=== PATIENT | female | born 1940 | race Caucasian/White ===

== ENCOUNTER 2016-07-31 08:56 | Inpatient (IN) | payer MEDICARE ==
[~2016-07-31] VITALS: Ht 160 cm; Wt 97.5 kg
[2016-07-31] MEDS ORDERED: ZOLP10TA3 PO (14:21)
[2016-07-31] MEDS ORDERED: FLUO40CA PO (14:21)
[2016-07-31] MEDS ORDERED: LOSA50TA PO (14:21)
[2016-07-31] MEDS ORDERED: GLIM4TAB PO (14:21)
[2016-07-31] MEDS ORDERED: AMLO5TAB2 PO (14:21)
[2016-07-31] MEDS ORDERED: LEVO150T7 PO (14:21)
[2016-07-31] MEDS ORDERED: PANT40TA3 PO (14:21)
--- NOTE | 2016-09-06 12:46 | MH ---
cc: DOMO MEJIA M.D. DATE OF ADMISSION 09/19/2016 ADMITTING DIAGNOSIS Osteoarthritis of the right knee, varus deformity right knee, patellofemoral disorder right knee, medial meniscus tear right knee and pain of the right knee. HISTORY The patient is a 76-year-old white female who has had a rather lengthy history of pain involving her right knee. Her history extends back to approximately 1988 at which time the patient underwent arthroscopic surgery as completed in the [facility] where the patient was living at that time. She described limited improvement following the procedure until approximately 1990 when she developed a staph infection secondary to a laceration about her right knee that required repeat surgery and approximately six months of intravenous antibiotics thereafter. Over the following year, she underwent at least two additional arthroscopic procedures the most recent of which was completed in 2001. During this interval of time, the patient received multiple cortisone injections for ongoing pain about her right knee and had been conforming to conservative management but with the passage of time became increasingly more symptomatic with pain especially within the past two years that she related to dancing activities. She had fallen on several occasions being aware of recurrent swelling about her knee for which she had taken Aleve, Naproxen and hydrocodone for pain management. She described herself as having been quite active in the past which included participation in karate and softball activities. She presented to the undersigned physician in July of 2000 of this year and at that time a review of an MRI scan that had been completed in June reported tricompartmental osteoarthritis being most severe in the medial compartment with an extruded tear involving the body of the medial meniscus and adjacent bony edema. Her x-ray studies revealed obvious degenerative change with [id number] apposition about the medial compartment associated with a varus deformity of at least 8 degrees magnitude and secondary involvement of the patellofemoral articulation. Findings and treatment options were reviewed with the patient at that time. The pros and cons of continuing with conservative management versus operative intervention involving total knee arthroplasty were outlined in detail. Emphasis was made regarding the fact that the decision to proceed with surgery would be left entirely to the patient's discretion. The patient considered her options in this regard and felt that her symptoms had progressed to a point in time where she was ready to proceed with surgery and in compliance with her wishes, she is currently being admitted in order that the above be accomplished. PAST MEDICAL HISTORY Hospitalizations and surgeries in addition to the procedures of her right knee described include: 1. Medical management for a pulmonary embolus following surgical treatment of her staph infection as described above. 2. She has also undergone surgery of her left hand and wrist area for a history of trauma that did apparently involved some type of open reduction, internal fixation and subsequent removal of hardware. 3. She has had a laparoscopic cholecystectomy. 4. A lap banding procedure 5. Insertion of a meridian vena caval filter 6. Colonoscopy 7. Upper endoscopy 8. Esophageal dilation 9. Umbilical herniorrhaphy 10. Lumpectomy of the left breast followed by radiation therapy 11. Excision of a benign cyst of the neck area 12. Right carpal tunnel release 13. Partial hysterectomy 14. Tonsillectomy 15. Removal of a duck-type of the right side of her neck 16. Additional hospitalizations for possible stroke. 17. Additional hospitalization for shortness of breath. The patient's current medical illnesses include: 1. Hypertension 2. Heart disease 3. Depression 4. Diabetes 5. Fibromyalgia 6. Hypothyroidism MEDICATIONS Her current medications: 1. Amlodipine 5 mg daily 1. Vasotec 10 mg daily 2. Fluoxetine 40 mg daily 3. Glimepiride 4 mg daily 4. Ambien 10 mg at bedtime 5. Levofloxacin 200 mcg daily 6. Lyrica 300 mg twice daily 7. Supplements including a women's multivitamin, vitamin D3, B12, vitamin C, Co-Q10, adult probiotic, calcium and Nexium ALLERGIES The patient describes a number of drug allergies includin. ATENOLOL THAT HAS CAUSED TIGHT OF HER THROAT 2. CARDIZEM, ASTHMATIC TYPE PROBLEMS 3. E-MYCIN 4. MACRODANTIN 5. SULFA DRUGS AND TETRACYCLINE HAVE BEEN ASSOCIATED WITH A HIVES TYPE REACTION. 6. HUMIBID HAS CAUSED RASH 7. MINIPRESS, TACHYCARDIA 8. STATIN DRUGS HAVE BEEN ASSOCIATED WITH WEIGHT GAIN 9. TOLECTIN HAS CAUSED INCREASED BLOOD PRESSURE 10. SHE SUGGESTED THE POSSIBILITY OF A REACTION TO CODEINE WITH SOME IRRATIONAL THOUGHT PROCESS, BUT HAS APPARENTLY TAKEN A NUMBER OF CODEINE TYPE MEDICINES IN THE PAST AND MORE RECENTLY WITHOUT SIGNIFICANT SIDE EFFECT NOTED. REVIEW OF SYSTEMS She has a history of headaches, no seizure or syncope. No sinus congestion or epistaxis. Diminished auditory acuity for which hearing aids are utilized. No tinnitus. No bleeding gums. She does have a history of dysphagia for which she has had esophageal dilations and describes she has been diagnosed as having borderline Lopez's esophagitis. No cough, shortness of breath, or upper respiratory infection. She has a history of sleep apnea for which C-PAP has been utilized in the past, but following her lap banding was discontinued. No angina. She is medically managed for hypertension. Her appetite is good. Bowel movements are regular. No hepatitis, ulcers or hemorrhoids. She is status post cholecystectomy. No urinary tract infection. No kidney stones. History of multiple fractures of the hand and foot region bilaterally. A psychiatric history of depression. Her remaining review of systems is unremarkable and noncontributory. FAMILY HISTORY The patient has had a partner for 32 years, but became . Within the last two years. Her partner is [id number], status post right total knee arthroplasty. She has a 48-year-old daughter by previous marriage who she is estranged from, but apparently has a history of ethanol abuse. Family history is otherwise positive for diabetes, hypertension, obesity and uterine cancer. 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 She admits to a 50 pack year use of tobacco which at its peak had been slightly less than one-pack per day and more recently is limited to no more than one cigar per month. She admits to ethanol consumption on social basis. PHYSICAL EXAMINATION Height 5 feet 4 inches, weight 204 pounds. GENERAL: An alert, oriented responsive 76-year-old white female who sits quietly upon the examination table with no obvious distress. HEAD, EYES, EARS, NOSE, AND THROAT: Pupils are equally round and reactive to light. Extraocular movements full. Sclerae clear. External nares clear. External auditory canals clear. Dental intact. Mucous membranes pink and moist. Pharynx clear. NECK: Supple. Active range of motion without appreciable pain. Carotid pulse bilaterally. Trachea midline. Thyroid without enlargement. LUNGS: Clear to auscultation and percussion. No CVA tenderness. No discomfort throughout the dorsal lumbar spine. HEART: Regular rhythm. No murmur or gallop. ABDOMEN: Soft and nontender. Bowel sounds present. PELVIC: Per her primary care physician. EXTREMITIES: Right knee, there is a mild fullness about the knee consistent with redundancy of soft tissue. No distinct intra-articular effusion. Limited mobility in the 90+ degree range of flexion with crepitation elicited, subtle suggestion for trace collateral ligamentous instability. Yani test and drawer sign negative. Pivot shift and Nel sign positive for medial compartment pain. Straight-leg raising unremarkable at 80 degrees, satisfactory mobility of the right hip with no associated pain. Mild antalgic gait. NEUROLOGIC: Cranial nerves II-XII grossly intact excluding diminished auditory acuity. IMPRESSION Osteoarthritis right knee, varus deformity right knee patellofemoral disorder right knee, medial meniscus tear right knee, pain right knee PLAN Right total knee arthroplasty. The nature of the planned surgical procedure, the potential complications and risks associated, the expectations of surgery and the consent form were thoroughly reviewed with the patient in the presence of her partner prior to admission to the hospital. Chinyere has indicated her full understanding regarding all of the above and given consent to proceed with treatment as outlined. Medical evaluation and clearance for surgery will be completed by her primary care physician Dr. Jose Luis Schmidt. MD OSMIN Cuellar/GABRIELLE /12:03 PM /12:22 PM
--- NOTE | 2016-10-13 12:28 | MH ---
cc: DOMO MEJIA MD, GREGORY P. MD DATE OF ADMISSION: 11/07/2016 ADMITTING DIAGNOSIS: 1. Osteoarthritis of the right knee. 2. Varus deformity right knee. 3. Patellofemoral disorder right knee. 4. Medial meniscus tear right knee. 5. Pain of the right knee HISTORY OF PRESENT ILLNESS: A 76-year-old white female with a lengthy history of pain involving her right knee which extended back approximately to 1988 at which time the patient underwent arthroscopic surgery as completed in [place] where she was residing at that time. She described limited improvement following the procedure until approximately 1990 when she developed a staph infection secondary to a laceration about her right knee that required repeat surgery and approximately six months of intravenous antibiotics. Over the following year, she underwent at least two additional arthroscopic procedures, the most recent of which was completed in 2001. During this interval of time, the patient received multiple cortisone injections for ongoing pain about her right knee while conforming to conservative management but becoming increasingly more symptomatic with pain especially in the preceding two years. The patient attributed her symptoms to attempts at dancing activities. She had fallen on several occasions being aware of recurrent swelling about her knee for which she was taking Aleve, naproxen and hydrocodone for pain management. She described herself as having been quite active in the past which included participation in karate and softball activities. She presented to the undersigned physician in July of this past year at which time a review of an MRI scan which had been completed in the preceding month reported tricompartmental osteoarthritis being most severe in the medial compartment with an extruded tear involving the body of the medial meniscus and adjacent bony edema. Her x-ray studies revealed obvious degenerative change with [id number] apposition about the medial compartment associated with a varus deformity of at least 8 degrees magnitude and secondary involvement patellofemoral articulation. Findings and treatment options were reviewed with the patient at that time. The pros and cons of continuing with additional conservative management versus operative intervention involving total knee arthroplasty were outlined in detail. Emphasis was made regarding the fact that the decision to proceed with surgery would be left entirely to the patient's discretion. She considered her options in this regard and felt that her symptoms had progressed to a point in time where she was ready to proceed with such treatment, and in compliance with her wishes she is currently being admitted in order that total knee arthroplasty be accomplished. PAST MEDICAL HISTORY, HOSPITALIZATIONS AND SURGERIES: Her past medical history, hospitalizations and surgeries in addition to procedures of her right knee as described have included: 1. Medical management for pulmonary embolus following surgical treatment of a staph infection as described. 2. Surgery of the left hand and wrist for history of trauma that apparently involved some type of an open reduction internal fixation and later removal of fixation hardware. 3. Laparoscopic cholecystectomy. 4. Lap-banding. 5. Insertion of meridian vena caval filter. 6. Colonoscopy. 7. Upper endoscopy. 8. Esophageal dilation. 9. Umbilical herniorrhaphy. 10. Lumpectomy of the left breast followed by radiation therapy. 11. Excision benign cyst of the neck area. 12. Right carpal tunnel release. 13. Partial hysterectomy. 14. Tonsillectomy. 15. Removal of a ductal lesion of the right side of her neck. 16. Medical evaluation for possible stroke. 17. Shortness of breath. The patient's current medical illnesses include: 1. Hypertension. 2. Heart disease. 3. Depression. 4. Diabetes. 5. Fibromyalgia. 6. Hypothyroidism. CURRENT MEDICATIONS: 1. Amlodipine 5 milligrams daily. 2. Vasotec 10 milligrams daily. 3. Fluoxetine 40 milligrams daily. 4. Glimepiride 4 milligrams daily. 5. Ambien 10 milligrams at bedtime. 6. Levofloxacin 200 micrograms daily. 7. Lyrica 300 milligrams twice daily. 8. Additional supplements including: a. A Woman's Multivitamin. b. Vitamin D3. c. B12. d. Vitamin C. e. Co-Q-10. f. Adult Probiotic. g. Calcium. h. Nexium. ALLERGIES: THE PATIENT DESCRIBES A NUMBER OF DRUG ALLERGIES WHICH HAVE INCLUDED: 1. ATENOLOL CAUSING TIGHTNESS OF HER THROAT. 2. CARDIZEM - ASTHMATIC PROBLEMS. 3. E-MYCIN, MACRODANTIN, SULFA AND TETRACYCLINE HAVE BEEN ASSOCIATED WITH A HIVES-TYPE REACTION. 4. HUMIBID - RASH. 5. MINIPRESS - TACHYCARDIA. 6. STATIN DRUGS - WEIGHT GAIN. 7. TOLECTIN - INCREASED BLOOD PRESSURE. 8. THE POSSIBILITY OF A REACTION TO CODEINE WITH SOME IRRATIONAL THOUGHT PROCESS BUT THE PATIENT HAS TAKEN A NUMBER OF CODEINE-TYPE PRODUCTS IN THE PAST AND MORE RECENTLY WITHOUT SIGNIFICANT SIDE EFFECT DESCRIBED. REVIEW OF SYSTEMS: She has a history of headaches but no seizure or syncope. No sinus congestion or epistaxis. Diminished auditory acuity for which hearing aids are utilized. No tinnitus. No bleeding gums. There is a positive history of dysphagia for which esophageal dilations have been previously completed. She has been diagnosed as having borderline Lopez's esophagitis. No cough, shortness of breath, upper respiratory infection. There is a history of sleep apnea for which C-PAP has been utilized in the past but following her lap banding procedure, she no longer required treatment. No angina. She is medically managed for hypertension. Appetite good. Bowel movements regular. No hepatitis, ulcers or hemorrhoids. She is status post cholecystectomy. No urinary tract infection. No kidney stones. History of multiple fractures of the hand and foot region bilaterally. Psychiatric evaluation for depression. Remaining review of systems is unremarkable and noncontributory. FAMILY HISTORY: The patient has had a partner for 32 years but recently became within the past two years. Her partner is 63 years of age. Status post right total knee arthroplasty. She has a 48-year-old daughter by previous marriage who she is estranged from but apparently has a history of ethanol abuse. Family history is positive for diabetes, hypertension, obesity and uterine cancer. 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 She admits to a 50 pack /year use of tobacco which at its peak had been slightly less than one-pack per day and more recently is limited to more than one cigar per month. She admits to ethanol consumption socially. PHYSICAL EXAMINATION: HEIGHT: 5 feet 4 inches. WEIGHT: 204 pounds. GENERAL: An alert, oriented and responsive 76-year-old white female who sitting quietly upon the examination table with no apparent distress. HEAD, EYES, EARS, NOSE, AND THROAT: Pupils are equally round and reactive to light. Extraocular movements full. Sclerae are clear. External nares clear. External auditory canals clear. Dental intact. Mucous membranes pink and moist. Pharynx clear. NECK: The neck is supple. Active range of motion without associated pain. Carotid pulse palpable bilaterally. Trachea midline. Thyroid without enlargement. LUNGS: Clear to auscultation and percussion. BACK: No CVA tenderness. No discomfort throughout the dorsal or lumbar spine. HEART: Regular rhythm. No murmur or gallop. ABDOMEN: Soft, nontender. Bowel sounds present. PELVIC: Per her primary care physician. EXTREMITIES: Right Knee: A mild fullness is generalized about the right knee consistent with redundancy of soft tissue. No distinct intraarticular effusion. Limited mobility in the 90+ degree range of flexion with crepitation elicited. Subtle suggestion for trace collateral ligamentous instability. Yani test and draw signs are negative. Pivot shift and Nel's sign positive for medial compartment pain. Straight leg raising unremarkable at 80 degrees. Satisfactory mobility of the right up but no associated pain. Mild antalgic gait. NEUROLOGIC: Cranial nerves II-XII grossly intact excluding diminished auditory acuity. IMPRESSION: 1. Osteoarthritis right knee. 2. Varus deformity right knee. 3. Patellofemoral disorder right knee. 4. Medial meniscus tear right knee. 5. Pain right knee. PLAN: Right total knee arthroplasty. The nature of the planned surgical procedure, the potential complications and risks associated, the expectations of surgery and the consent form have been thoroughly reviewed with the patient in the presence of her partner prior to admission to the hospital. Chinyere has indicated her full understanding regarding all of the above and given consent to proceed with treatment as outlined. Medical evaluation and clearance for surgery will be completed by her primary care physician, Dr. Jose Luis Schmidt. MD OSMIN Cuellar/NATALIYA /10:32 AM /12:07 PM
[2016-10-31] MEDS ORDERED: VITA500T PO (11:25)
[2016-10-31] MEDS ORDERED: FISH1000 PO (11:25)
[2016-10-31] MEDS ORDERED: VITA500T49 PO (11:25)
[2016-10-31] MEDS ORDERED: CALC1TAB55 PO (11:25)
[2016-10-31] MEDS ORDERED: DIPH25CA PO (11:25)
[2016-10-31] MEDS ORDERED: MULT-120 PO (11:25)
[2016-10-31] MEDS ORDERED: OXYC1TAB63 PO (11:25)
--- NOTE | 2016-11-02 08:08 | MH ---
cc: DOMO MEJIA MD DATE OF ADMISSION: 11/07/2016 ADMITTING DIAGNOSES Osteoarthritis of the right knee, varus deformity right knee, patellofemoral disorder right knee, medial meniscus tear right knee, and pain of the right knee. HISTORY The patient is a 76-year-old white female who has had a rather lengthy history of pain involving her right knee. Her history dating back to approximately 1988 at which time the patient underwent arthroscopic surgery as completed in the [facility] where she was living at that time. She described limited improvement following the procedure until approximately 1990 when she developed a Staph infection secondary to a laceration about her right knee that required repeat surgery and approximately six months of intravenous antibiotic treatment. Over the following years, she underwent at least two additional arthroscopic procedures the most recent of which was completed in 2001. During this interval of time, the patient received multiple cortisone injections for ongoing pain about her right knee while conforming to conservative management, but with the passage of time she became increasingly more symptomatic with pain especially during the previous two years that she related to dancing activities. She had fallen on several occasions being aware of recurrent swelling about her knee for which she had taken Aleve, naproxen and hydrocodone for pain management. She described herself as having been quite active in years past which included participation in karate and softball activities. She presented to the undersigned physician in July of this past year and at that time a review of a previous MRI scan which had been completed in June reported tricompartmental osteoarthritis being more severe in the medial compartment with an extruded tear involving the body of the medial meniscus and adjacent bony edema. Her x-ray studies revealed obvious degenerative changes with [id number] apposition about the medial compartment associated with a varus deformity of at least 8 degrees magnitude and secondary involvement of the patellofemoral articulation. Findings and treatment options were reviewed with the patient at that time. The pros and cons of continuing with conservative management versus operative intervention that would involve a total knee arthroplasty were outlined in detail. Emphasis was made regarding the fact that the decision to proceed with surgery will be left entirely to the patient's discretion. The patient considered her options in this regard indicating that she felt she had progressed to a point in time where she was ready to proceed with such treatment, and in compliance with her wishes she is currently being admitted in order that total knee replacement be completed. PAST MEDICAL HISTORY/HOSPITALIZATIONS/SURGERIES Her past medical history, hospitalizations and surgeries in addition to those described above with regards to her right knee have included - 1. Medical management for pulmonary embolus following surgical treatment of a Staph infection as noted. 2. Surgery of the left hand and wrist for a history of trauma that apparently involved some type of open reduction internal fixation and later removal of hardware. 3. Laparoscopic cholecystectomy. 4. Lap banding. 5. Insertion of a Erie vena caval filter. 6. Colonoscopy. 7. Upper endoscopy. 8. Esophageal dilation. 9. Umbilical herniorrhaphy. 10. Lumpectomy of the left breast followed by radiation therapy. 11. Excision of a benign cyst of the neck area. 12. Right carpal tunnel release. 13. Partial hysterectomy. 14. Tonsillectomy. 15. Removal of a ductal type lesion of the right side of her neck. 16. Hospitalization for medical management of a possible stroke and shortness of breath. MEDICAL ILLNESSES Her medical illnesses include - 1. Hypertension. 2. Heart disease. 3. Depression. 4. Diabetes. 5. Fibromyalgia. 6. Hypothyroidism. MEDICATIONS 1. Amlodipine 5 mg daily. 2. Vasotec 10 mg daily. 3. Fluoxetine 40 mg daily. 4. Glimepiride 4 mg daily. 5. Ambien 10 mg at bedtime. 6. Levofloxacin 200 mcg daily. 7. Lyrica 300 mg twice daily. 8. Supplements including Women's Multivitamin, Vitamin D3, B12, Vitamin C, CO-Q10, Adult Probiotic, Calcium, and Nexium. 9. Calcium. ALLERGIES THE PATIENT DESCRIBES A NUMBER OF DRUG ALLERGIES. 1. ATENOLOL - HAS BEEN ASSOCIATED WITH TIGHTNESS OF HER THROAT. 2. CARDIZEM - ASTHMATIC TYPE REACTION. 3. E-MYCIN, MACRODANTIN, SULFA DRUGS AND TETRACYCLINE - HAVE BEEN ASSOCIATED WITH HIVES TYPE REACTION. 4. HUMIBID - RASH. 5. MINIPRESS - TACHYCARDIA. 6. STATIN DRUGS - CAUSE WEIGHT GAIN. 7. TOLECTIN - HAS BEEN ASSOCIATED WITH INCREASED BLOOD PRESSURE. 8. SHE HAS SUGGESTED THE POSSIBILITY OF A REACTION TO CODEINE WITH SOME IRRATIONAL THOUGHT BEHAVIOR, BUT APPARENTLY HAS TAKEN A NUMBER OF CODEINE TYPE MEDICATIONS IN THE PAST AND MORE RECENTLY WITHOUT SIGNIFICANT SIDE EFFECT DESCRIBED. REVIEW OF SYSTEMS She has a history of headaches. No seizure or syncope. No sinus congestion or epistaxis. Diminished auditory acuity for which hearing aids are utilized. No tinnitus. No bleeding gums or dysphagia. There is a positive history of dysphagia for which esophageal dilations have been completed in the past. Borderline Lopez's esophagitis. No cough, shortness of breath, upper respiratory infection. There is a history of sleep apnea for which CPAP has been utilized, but following her lap banding she has been able to discontinue this treatment. No angina. She is medically managed for hypertension. Her appetite is good. Bowel movements regular. No hepatitis, ulcers or hemorrhoids. She is status post cholecystectomy. No urinary tract infection. No kidney stones. There is a history of multiple fractures of the hand and foot region bilaterally. Psychiatric history for depression. The remaining review of systems is unremarkable and noncontributory. FAMILY HISTORY The patient has had a partner for 32 years, recently within the last two years, her partner is 63 years of age. She is status post right total knee arthroplasty. The patient has a 48-year-old daughter by a previous marriage who she is estranged from but apparently who has a history of ethanol abuse. Family history is otherwise positive for diabetes, hypertension, obesity and uterine cancer. 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 She admits to a 20-[id number]-dxby use of tobacco which at its peak had been slightly less than one-pack per day and more recently is limited to no more than one cigarette per month. She admits to ethanol consumption on a social basis. PHYSICAL EXAMINATION Height 5 feet 4 inches, weight 204 pounds. GENERAL: An alert, oriented and responsive 76-year-old white female who sits quietly upon the examination table with no apparent distress. HEAD, EARS, EYES, NOSE AND THROAT: Pupils are equally round and reactive to light. Extraocular movements full. Sclerae are clear. External nares clear. External auditory canals clear. Dental intact. Mucous membranes pink and moist. Pharynx clear. NECK: Supple. Active range of motion without appreciable pain. Carotid pulse palpable bilaterally. Trachea midline. Thyroid without enlargement. LUNGS: Clear to auscultation and percussion. BACK: No CVA tenderness. No discomfort throughout the dorsolumbar spine. HEART: Regular rhythm. No murmur or gallop. ABDOMEN: Soft, nontender. Bowel sounds present. PELVIC: Per primary care physician. EXTREMITIES: Right knee: There is a fullness about the knee consistent with redundancy of soft tissue. No distinct intraarticular effusion. Limited mobility and 90+ degree range of flexion with crepitation associated, subtle suggestion for trace collateral ligamentous instability. Yani test and drawer sign negative. Pivot shift and Nel sign positive for medial compartment pain. Straight-leg raising unremarkable at 80 degrees. Satisfactory mobility of the right hip with no associated pain. Mild antalgic gait. NEUROLOGIC: Cranial nerves II through XII grossly intact excluding diminished auditory acuity. IMPRESSION Osteoarthritis of the right knee, varus deformity right knee, patellofemoral disorder right knee, medial meniscus tear right knee, pain right knee PLAN Right total knee arthroplasty. The nature of the planned surgical procedure, the potential complications and risks associated, the expectations of surgery and the consent form were thoroughly reviewed with the patient in the presence of her partner prior to admission to the hospital. Chinyere has indicated her full understanding regarding all of the above and given consent to proceed with treatment as outlined. Medical evaluation and clearance for surgery will be completed by her primary care physician Dr. Jose Luis Schmidt. MD OSMIN Cuellar/BJF /4:59 PM /8:02 AM
[2016-11-07] MEDS ORDERED: TRANEXAMIC ACID 1 GM POST-OP IV SCH ×2 (07:30)
[2016-11-07] MEDS ORDERED: LACTATED RINGER'S 1000 ML IV SCH (07:30)
[2016-11-07] MEDS ORDERED: TRANEXAMIC ACID 1 GM PRIOR TO PROCEDURE IV SCH ×2 (07:30)
[2016-11-07] MEDS ORDERED: SODIUM CHLORID 0.9% 500 ML IV SCH (07:30)
[2016-11-07] MEDS ORDERED: INSULIN HUMAN REGULAR 1,000 UNITS/10 ML VIAL SQ PRN (07:30)
[2016-11-07] MEDS ORDERED: METOPROLOL TARTRATE 25 MG TAB PO PRN (07:30)
[2016-11-07] MEDS ORDERED: ceFAZolin 2 GM PREMIX 50 ML IV SCH (07:30)
[2016-11-07 07:33] VITALS: BP 187/96; PULSE 77; RESP 16; TEMP 98.5; O2SAT 96
[2016-11-07] MEDS ORDERED: DEXAMETHASONE SOD PHOS 4 MG/ML VIAL ONE (08:30)
[2016-11-07] MEDS ORDERED: MIDAZOLAM HCL 5 MG/5 ML VIAL ONE (08:30)
[2016-11-07] MEDS ORDERED: ACETAMINOPHEN 1000 MG/100 ML VIAL IV ONE (09:48)
[2016-11-07] MEDS ORDERED: fentaNYL CITRATE 250 MCG/5 ML AMP ONE (09:48)
[2016-11-07] MEDS ORDERED: ceFAZolin INJ 1,000 MG VIAL ONE ×2 (09:50→11:11)
[2016-11-07] MEDS ORDERED: BUPIVACAINE HCL PF 0.25% 30 ML VIAL NB ONE (11:36)
[2016-11-07] MEDS ORDERED: DEXAMETHASONE SOD PHOS PF 10 MG/ML VIAL IV ONE (11:36)
[2016-11-07] MEDS ORDERED: BUPIVACAINE HCL PF 0.5% 30 ML VIAL NB ONE (11:36)
[2016-11-07] MEDS ORDERED: SODIUM CHLORIDE 0.9% FLUSH 5 ML FLUSH IVF PRN (13:00)
[2016-11-07] MEDS ORDERED: DOCUSATE SODIUM 100 MG CAP PO PRN (13:00)
[2016-11-07] MEDS ORDERED: MISCELLANEOUS PHARMACY INFORMATION XX ONE (13:00)
[2016-11-07] MEDS ORDERED: MAGNESIUM HYDROXIDE SUSP 30 ML CUP PO PRN (13:00)
[2016-11-07] MEDS ORDERED: Post-op Orders (for Pharmacy) MISC XX ONE (13:00)
[2016-11-07] MEDS ORDERED: ALUMINUM/MAGNESIUM/SIMETH 30 ML CUP PO PRN (13:00)
[2016-11-07] MEDS ORDERED: PROMETHAZINE INJ 25 MG/ML VIAL IM PRN (13:00)
[2016-11-07] MEDS ORDERED: ACETAMINOPHEN/HYDROcodone 325 MG/5 MG TAB PO PRN ×2 (13:00)
[2016-11-07] MEDS ORDERED: NALOXONE HCL 0.4 MG/ML AMP IV PRN (13:00)
[2016-11-07] MEDS ORDERED: diphenhydrAMINE HCL 25 MG CAP PO PRN (13:00)
[2016-11-07] MEDS ORDERED: TRANEXAMIC ACID INJ 1,000 MG in SODIUM CHLORIDE 0.9% INJ 100 ML IV SCH (13:00)
--- NOTE | 2016-11-07 13:04 | MP ---
cc: DOMO CARRANZA MD DATE OF SURGERY 11/07/2016 PREOPERATIVE DIAGNOSIS Osteoarthritis of the right knee, varus deformity right knee patellofemoral disorder right knee, medial meniscus tear right knee and pain of the right knee. POSTOPERATIVE DIAGNOSIS Osteoarthritis of the right knee, varus deformity right knee patellofemoral disorder right knee, medial meniscus tear right knee and pain of the right knee. PROCEDURE Right total knee arthroplasty SURGEON Domo Carranza MD ANESTHESIA General endotracheal INDICATIONS A 76-year-old white female with a lengthy history of pain involving her right knee dating back to approximately 1988 at which time the patient underwent arthroscopic surgery as completed in [place] where she was residing at that time. She described limited improvement following the procedure until 1990 when she developed a staph infection secondary to a laceration about her right knee that required operative treatment and six months of intravenous antibiotics. Over the following years, the patient underwent at least two additional arthroscopic procedures the most recent of which was completed in 2001. During this interval of time, she received multiple cortisone injections for ongoing pain about her right knee while conforming to conservative management. With the passage of time, she became increasingly more symptomatic with pain especially during the previous two years secondary to dancing activities. She had fallen on several occasions being aware of recurrent swelling about her knee for which he had taken Aleve, naproxen and hydrocodone for pain management. She described herself as having been quite active in previous years which included participation in karate and softball activities. She presented to the undersigned physician in July of this past year at which time she had undergone a previous MRI scan that had been completed in June that reported tricompartmental osteoarthritis being more severe in the medial compartment with an extruded tear involving the body of the medial meniscus and adjacent bony edema. Her x-ray studies revealed obvious degenerative changes with [id number] apposition about the medial compartment associated with a varus deformity of at least 8 degrees magnitude and secondary involvement the patellofemoral articulation. Findings and treatment options were reviewed with the patient at that time. The pros and cons of continuing with conservative management versus operative intervention that would involve a total knee arthroplasty were outlined in detail. Emphasis was made regarding the fact that the decision to proceed with surgery would be left entirely to the patient's discretion. She considered her options in this regard and subsequent return to the office and more recent follow-up indicating that her symptoms had progressed to a point in time where she was ready to proceed with surgery as had previously been discussed. In compliance with her wishes, she was scheduled for admission at this time in order that right total knee arthroplasty be completed. FORMAT Following the induction of satisfactory general anesthesia by endotracheal intubation as completed per the department of anesthesia, a tourniquet was established around the proximal portion of the right lower extremity. The extremity proper was isolated with a U drape thereafter being prepped with Betadine solution and draped into a sterile field in the routine manner. Prior to initiation of the actual procedure, the standard time-out protocol was completed. All parameters were appropriately addressed and confirmed by operating room personnel. The extremity was elevated for approximately one minute. The tourniquet thus inflated to 250 mmHg pressure. A sharp skin incision was initiated midline over the anterior aspect of the knee and developed through underlying subcutaneous tissues with hemostasis maintained by electrocautery. By deepening dissection, the anterior capsule was exposed. A medial capsulotomy completed and the patella subluxed in a lateral orientation. Examination of the joint space revealed severe degenerative changes throughout the medial compartment extending into the patellofemoral articulation. There were additional articular defects involving the lateral femoral condyle as well. Pronounced attenuation of the anterior cruciate ligament as well as a complex tear involving the medial meniscus. The articular surface of the patella was resected with power saw. The three holed guide was utilized for establishing post holes. Remnant of the anterior cruciate ligament, as well as medial and lateral meniscus structures were sharply excised. A centering hole was placed in the distal aspect of the femur allowing positioning of the intramedullary guide. The distal femoral cutting jig was attached and the distal femur resected. AP measurement noted 65 mm sizing to be appropriate. The matching cutting block was positioned. Anterior, posterior and chamfer cuts were completed. The tibial plateau was thereafter subluxed in an anterior orientation allowing positioning of the extramedullary guide. The tibial plateau was resected and measured with 75 mm sizing determined to be satisfactory. A trial reduction followed utilizing a 65 mm anatomic femoral component, a 75 mm tibial base with both 10, 12 and 14 mm bearing inserts trialed in a sequential fashion. The 12 mm thickness was determined to be the most favorable fit. The knee was readily brought to full extension. There was no laxity to varus/valgus stress at both 0 and 90 degrees flexed posture. Orientation was confirmed as appropriate with measurement of the pelvic guide through the mechanical axis of the knee. A trial reduction followed utilizing a 31 mm standard patellar button. Once again, good tracking was demonstrated with no tendency toward subluxation. All trial components being removed, the remaining portion of the proximal tibia was prepared for insertion of the permanent component. The joint space was thoroughly lavaged with pulsating antibiotic solution. Hemostasis maintained by electrocautery. An autogenous bone plug was inserted into the distal femoral guide hole and thereafter a preparation of cobalt bone cement was utilized in inserting knee components in a sequential fashion which included a 75 mm fixed cruciate tibial plate to which a 14 mm Vanguard tibial bearing insert was secured with locking harris. The 65 mm Vanguard femoral component was firmly seated onto the distal femur, excess cement being removed, the knee was brought to full extension and thereafter the 31 mm standard three post patellar button was attached and maintained in place with patellar clamp while cement hardening was completed. Final range of motion assessment noted good tracking and stability throughout the knee. Irrigation was repeated with hemostasis maintained. Autovac drain tubes were inserted through superior stab wounds. The capsule was repaired with 0 Vicryl suture. The remaining portion of the wound was closed in layers in the routine manner. Skin margins being reapproximated with a running subcuticular 3-0 Vicryl suture over which Steri-Strips were applied. Xeroform gauze and a bulky dry sterile dressing were placed. The tourniquet had been deflated after 49 minutes of tourniquet time. The extremity being supported by canvas knee splint, anesthesia was discontinued. The patient was thereafter transferred to a hospital bed and returned to the recovery room in satisfactory condition having tolerated her operative procedure well. Estimated blood loss approximately 50 cc as determined per anesthesia. All implants were of the [employer] manufacture. MD OSMIN Cuellar/GABRIELLE /12:39 PM /12:52 PM
[2016-11-07] MEDS ORDERED: PROPOFOL 200 MG/20 ML AMP IV ONE (13:26)
[2016-11-07] MEDS ORDERED: ePHEDrine/NS 25 MG/5 ML SYR IV ONE (13:26)
[2016-11-07] MEDS ORDERED: NEOSTIGMINE 3 MG/3 ML SYR IV ONE (13:26)
[2016-11-07] MEDS ORDERED: LACTATED RINGER'S 1000 ML INJ 1,000 ML IV ONE (13:26)
[2016-11-07] MEDS ORDERED: ONDANSETRON HCL 4 MG/2 ML VIAL IV PUSH ONE (13:26)
[2016-11-07] MEDS ORDERED: DO NOT ADM ANY ANTICOAGULANT DRUGS XX PRN (13:30)
[2016-11-07] MEDS: MORPHINE SULFATE 30 MG/30 ML PCA IV SCH ×2 (13:30→18:02)
[2016-11-07] MEDS: DEXT 5%-NACL 0.45% 1000 ML INJ 1,000 ML IV SCH ×2 (13:35→20:39)
--- NOTE | 2016-11-07 13:43 | PD.CONS ---
HPI Service [facility] Consult Requested By Orthopedic surgery Reason for Consult Medical management Primary Care Physician Non-Staff Diagnoses: History of Present Illness 76-year-old female with a rather complex surgical history concerning her right knee. Patient has had 2 previous surgeries on the right knee including arthroscopy orthopedic procedures as well as cortisone injections however continue to have severe right knee pain affecting her daily living activity. Patient was taken to the operating room today and underwent right total knee arthroplasty. She was seen in PACU, she denies any chest pain or shortness of breath. Review of Systems Other 12 systems reviewed and are negative except for the one mentioned in the history of present illness Past Family Social History Allergies: Coded Allergies: E-Mycin (Verified Allergy, Severe, Hives, 11/07/16) Humibid L.A. (Verified Allergy, Severe, rash, 11/07/16) Lyrica (Verified Allergy, Severe, Dizziness, 11/07/16) EXCESSIVE SWEATING AND WT GAIN Macrodantin (Verified Allergy, Severe, hives, 11/07/16) Minipress (Verified Allergy, Severe, Tachycardia, 11/07/16) Naprosyn (Verified Allergy, Severe, Rash, 11/07/16) Neurontin (Verified Allergy, Severe, Headache, 11/07/16) Sulfa (Verified Allergy, Severe, hives, 11/07/16) Tetracycline (Verified Allergy, Severe, hives, 11/07/16) Atenolol (Verified Allergy, Unknown, UNKNOWN REACTION, 11/07/16) HMG-CoA Reductase Inhibitors (Verified Allergy, Unknown, 11/07/16) Nifedipine (Verified Allergy, Unknown, 10/31/16) Phenylephrine (Verified Allergy, Unknown, 11/07/16) Cardizem (Verified Adverse Reaction, Severe, ASTHMA PROBLEMS, 11/07/16) Codeine (Verified Adverse Reaction, Unknown, Confusion, 11/07/16) Uncoded Allergies: TOLECTIN (Allergy, Unknown, Hypertension, 09/06/16) Past Medical History Osteoarthritis Diabetes type 2 Hypothyroidism Hypertension Anxiety Past Surgical History Right total knee arthroplasty 11/07/16 Lap banding Lap cholecystectomy Hernia repair Partial hysterectomy Reported Medications See EMR Family History Noncontributory Social History She denies tobacco, alcohol or easy drug intake Physical Exam Vital Signs Vital Signs Date Time Temp Pulse Resp B/P Pulse Ox O2 Delivery O2 Flow Rate FiO2 11/07/16 13:30 15 11/07/16 13:00 80 14 161/86 96 Nasal Cannula 3 11/07/16 12:44 97.9 83 16 166/90 90 Nasal Cannula 5 11/07/16 07:33 98.5 77 16 187/96 96 Physical Exam GENERAL: This is a well-nourished, well-developed patient, in no apparent distress. SKIN: No rashes, ecchymoses or lesions. Cool and dry. HEAD: Atraumatic. Normocephalic. No temporal or scalp tenderness. EYES: Pupils equal round and reactive. Extraocular motions intact. No scleral icterus. No injection or drainage. ENT: Nose without bleeding, purulent drainage or septal hematoma. Throat without erythema, tonsillar hypertrophy or exudate. Uvula midline. Airway patent. NECK: Trachea midline. No JVD or lymphadenopathy. Supple, nontender, no meningeal signs. CARDIOVASCULAR: Regular rate and rhythm without murmurs, gallops, or rubs. RESPIRATORY: Clear to auscultation. Breath sounds equal bilaterally. No wheezes , rales, or rhonchi. GASTROINTESTINAL: Abdomen soft, non-tender, nondistended. No hepato-splenomegaly , or palpable masses. No guarding. MUSCULOSKELETAL: Extremities without clubbing, cyanosis, or edema. No joint tenderness, effusion, or edema noted. No calf tenderness. Negative Homans sign bilaterally. NEUROLOGICAL: Awake and alert. Cranial nerves II through XII intact. Motor and sensory grossly within normal limits. Five out of 5 muscle strength in all muscle groups. Normal speech. Laboratory Laboratory Tests Test 11/07/16 07:30 Blood Type A POSITIVE Antibody Screen NEGATIVE Blood Bank Comment Assessment and Plan Assessment and Plan 76-year-old female with Right severe knee osteoarthritis: History of previous right knee surgeries and now status post Right total knee arthroplasty 11/07/16, management per orthopedic surgery and continue current postop care including IV antibiotics, pain management. PT consult to treat and eval. Diabetes type 2: Start insulin sliding scale, resume outpatient medications including glimepiride Hypertension: Resume Norvasc 5 mg daily and losartan 50 mg daily Hypothyroidism: Synthroid DVT prophylaxis: Xarelto Thank you for this consultation Code Status Full code Discussed Condition With Patient Edgar Edge MD Nov 07, 2016 13:43
[2016-11-07] MEDS: PCA - TOTAL MG MORPHINE DELIVERED PER SHIFT SCH ×2 (14:00→20:40)
[2016-11-07 14:30] VITALS: BP 163/94; PULSE 82; RESP 17; TEMP 96.1; O2SAT 94
--- NOTE | 2016-11-07 15:21 | RADRPT ---
EXAM DATE/TIME: 11/07/2016 13:16 [facility] COMPARISON: No previous studies available for comparison. INDICATIONS : Post op right knee replacement. MEDICAL HISTORY : None. SURGICAL HISTORY : None. ENCOUNTER: Initial ACUITY: 1 day PAIN SCORE: 0/10 LOCATION: Right knee FINDINGS: Total knee arthroplasty is present. The hardware is intact. Alignment is anatomic. Surgical drains ar e present in the suprapatellar soft tissues. CONCLUSION: Satisfactory appearance post right TKA Cheikh Denise MD on November 07, 2016 at 15:09 Board Certified Radiologist. This report was verified electronically.
[2016-11-07 20:11] VITALS: BP 160/73; PULSE 82; RESP 18; TEMP 96.5; O2SAT 96
[2016-11-07] MEDS: SODIUM CHLORIDE 0.9% FLUSH 5 ML FLUSH IVF SCH (20:38)
[2016-11-07] MEDS ORDERED: ZOLPIDEM TARTRATE 5 MG TAB PO PRN (21:00)
[2016-11-08] VITALS (7 sets, daily range): BP systolic 107–139; BP diastolic 58–71; PULSE 78–104; RESP 16–20; TEMP 96–98; O2SAT 94–98
[2016-11-08] MEDS: PCA - TOTAL MG MORPHINE DELIVERED PER SHIFT SCH ×3 (06:00→22:00)
[2016-11-08] MEDS ORDERED: ASPI325T PO (06:07)
[2016-11-08] MEDS ORDERED: HYDR-3516 PO (06:07)
--- NOTE | 2016-11-08 06:10 | HHI.FF ---
Face to Face Verification Diagnosis: (1) DJD (degenerative joint disease) of knee Physical Therapy Gait training Knee: Total knee, Protocol: Right, Full weight bearing Right LE Weight Bearing: WB as tolerated Right LE Range of Motion: Active ROM Nursing Dressing Changes: Daily dressing change I have seen patient Chinyere Marie on 11/08/16. My clinical findings support the need for the requested home health care services because: Limited ability to care for self High risk of falls I certify that my clinical findings support that this patient is homebound because: Post-op weakness Unsteady gait/balance Unsafe to leave home unassisted Benji Carranza MD Nov 08, 2016 06:09
[2016-11-08] MEDS ORDERED: MISC-274 (06:15)
[2016-11-08 07:03] LABS: HEMATOCRIT 34.1 % (35.0-46.0); REVIEW FLAG FINAL
[2016-11-08] MEDS: POVIDONE IODINE 7.5% SCRUB 118 ML BOTTLE TOP SCH (07:30)
[2016-11-08] MEDS: SODIUM CHLORIDE 0.9% FLUSH 5 ML FLUSH IVF SCH ×2 (08:17→20:47)
[2016-11-08] MEDS: DEXT 5%-NACL 0.45% 1000 ML INJ 1,000 ML IV SCH ×3 (08:21→20:47)
[2016-11-08] MEDS: ONDANSETRON HCL 4 MG/2 ML VIAL IVP PRN (09:02)
[2016-11-08] MEDS ORDERED: MAGNESIUM HYDROXIDE SUSP 30 ML CUP PO ONE (10:15)
[2016-11-08 11:34] LABS: POTASSIUM 4.2 MEQ/L (3.5-5.1)
[2016-11-08] MEDS ORDERED: RIVAROXABAN 10 MG TAB PO SCH (12:00)
--- NOTE | 2016-11-08 12:47 | HHI.PR ---
Subjective Remarks Patient seen and examined Complains of nausea without any emesis Right knee pain tolerable Objective Vitals Vital Signs Date Time Temp Pulse Resp B/P Pulse Ox O2 Delivery O2 Flow Rate FiO2 11/08/16 11:00 96.9 78 20 121/65 95 11/08/16 08:00 97.5 104 18 110/60 95 11/08/16 07:20 Nasal Cannula 2.00 11/08/16 06:00 20 11/08/16 04:09 96.2 79 17 117/58 96 11/08/16 01:05 20 11/08/16 00:11 96.0 80 17 107/66 94 11/07/16 20:40 20 11/07/16 20:11 96.5 82 18 160/73 96 11/07/16 18:02 20 11/07/16 14:30 96.1 82 17 163/94 94 11/07/16 14:00 81 14 169/93 93 Nasal Cannula 2 11/07/16 13:45 97.7 76 15 165/92 94 Nasal Cannula 2 11/07/16 13:30 77 16 156/89 94 Nasal Cannula 2 11/07/16 13:30 15 11/07/16 13:15 76 17 172/82 95 Nasal Cannula 2 11/07/16 13:00 80 14 161/86 96 Nasal Cannula 3 I/O 11/07/16 11/07/16 11/07/16 11/08/16 11/08/16 11/08/16 07:00 15:00 23:00 07:00 15:00 23:00 Intake Total 1300 ml 360 ml 2266 ml Output Total 50 ml 50 ml 800 ml Balance 1250 ml 310 ml 1466 ml Intake Oral 360 ml 360 ml IV Total 1906 ml Other 1300 ml Output Urine Total 700 ml Stool Total 0 ml Drainage Total 50 ml 100 ml Estimated Blood Loss 50 ml # Voids 0 # Bowel Movements 0 0 Result Diagram: 11/08/16 0619 11/08/16 1040 Imaging Last Impressions Knee X-Ray 11/07/16 1247 Signed Impressions: Service Date/Time: Monday, November 07, 2016 13:16 - CONCLUSION: Satisfactory appearance post right TKA Cheikh Denise MD Objective Remarks GENERAL: NAD SKIN: Warm and dry. HEAD: Normocephalic. EYES: No scleral icterus. No injection or drainage. NECK: Supple, trachea midline. No JVD or lymphadenopathy. CARDIOVASCULAR: Regular rate and rhythm without murmurs, gallops, or rubs. RESPIRATORY: Breath sounds equal bilaterally. No accessory muscle use. GASTROINTESTINAL: Abdomen soft, non-tender, nondistended. MUSCULOSKELETAL: No cyanosis, or edema. Right knee repair; dressing intact- neurovascular intact BACK: Nontender without obvious deformity. No CVA tenderness. A/P Assessment and Plan 76-year-old female with Right severe knee osteoarthritis: History of previous right knee surgeries and now status post Right total knee arthroplasty 11/07/16, management per orthopedic surgery and continue current postop care including pain management. PT consult to treat and eval. Diabetes type 2: on insulin sliding scale, continue outpatient medications including glimepiride Hypertension: Continue Norvasc 5 mg daily and losartan 50 mg daily Hypothyroidism: Synthroid DVT prophylaxis: Edgar Arellano MD Nov 08, 2016 12:47
[2016-11-08] MEDS: ACETAMINOPHEN 325 MG TAB PO PRN ×2 (13:46→22:10)
[2016-11-08] MEDS: SENNOSIDES 8.6 MG TAB PO SCH (20:46)
[2016-11-08] MEDS: MAGNESIUM HYDROXIDE SUSP 30 ML CUP PO SCH (20:47)
[2016-11-09] VITALS (7 sets, daily range): BP systolic 142–166; BP diastolic 69–85; PULSE 78–86; RESP 16–20; TEMP 79–99.4; O2SAT 92–96
[2016-11-09] MEDS: DEXT 5%-NACL 0.45% 1000 ML INJ 1,000 ML IV SCH ×3 (04:47→20:47)
[2016-11-09] MEDS: PCA - TOTAL MG MORPHINE DELIVERED PER SHIFT SCH (06:00)
[2016-11-09] MEDS: POVIDONE IODINE 7.5% SCRUB 118 ML BOTTLE TOP SCH (07:30)
[2016-11-09] MEDS: LOSARTAN 50 MG TAB PO SCH (08:19)
[2016-11-09] MEDS: GLIMEPIRIDE 4 MG TAB PO SCH (08:19)
[2016-11-09] MEDS: MAGNESIUM HYDROXIDE SUSP 30 ML CUP PO SCH ×2 (08:19→20:10)
[2016-11-09] MEDS: FLUoxetine HCL 20 MG CAP PO SCH (08:19)
[2016-11-09] MEDS: amLODIPine BESYLATE 5 MG TAB PO SCH (08:19)
[2016-11-09] MEDS: LEVOTHYROXINE SODIUM 150 MCG TAB PO SCH (08:19)
[2016-11-09] MEDS: SODIUM CHLORIDE 0.9% FLUSH 5 ML FLUSH IVF SCH ×2 (09:00→20:11)
[2016-11-09] MEDS: ONDANSETRON HCL 4 MG/2 ML VIAL IVP PRN (09:30)
--- NOTE | 2016-11-09 09:42 | HHI.PR ---
Subjective Remarks Patient seen and examined Couple episode of emesis and nausea Afebrile Objective Vitals Vital Signs Date Time Temp Pulse Resp B/P Pulse Ox O2 Delivery O2 Flow Rate FiO2 11/09/16 00:00 99.4 78 16 142/69 96 11/08/16 20:42 Nasal Cannula 1.00 11/08/16 20:00 98.0 81 18 136/71 95 11/08/16 16:00 97.3 86 16 139/68 96 11/08/16 13:23 98 Nasal Cannula 3.00 11/08/16 11:00 96.9 78 20 121/65 95 I/O 11/08/16 11/08/16 11/08/16 11/09/16 11/09/16 11/09/16 07:00 15:00 23:00 07:00 15:00 23:00 Intake Total 2266 ml 678 ml 480 ml 240 ml Output Total 800 ml 90 ml 40 ml Balance 1466 ml 588 ml 440 ml 240 ml Intake Oral 360 ml 240 ml 480 ml 240 ml IV Total 1906 ml 438 ml Output Urine Total 700 ml Stool Total 0 ml Drainage Total 100 ml 90 ml 40 ml # Voids 1 1 2 # Bowel Movements 0 0 0 0 Result Diagram: 11/08/16 0619 11/08/16 1040 Objective Remarks GENERAL: NAD SKIN: Warm and dry. HEAD: Normocephalic. EYES: No scleral icterus. No injection or drainage. NECK: Supple, trachea midline. No JVD or lymphadenopathy. CARDIOVASCULAR: Regular rate and rhythm without murmurs, gallops, or rubs. RESPIRATORY: Breath sounds equal bilaterally. No accessory muscle use. GASTROINTESTINAL: Abdomen soft, non-tender, nondistended. MUSCULOSKELETAL: No cyanosis, or edema. Right knee repair; dressing intact- neurovascular intact BACK: Nontender without obvious deformity. No CVA tenderness. A/P Assessment and Plan 76-year-old female with Right severe knee osteoarthritis: History of previous right knee surgeries and now status post Right total knee arthroplasty 11/07/16, management per orthopedic surgery and continue current postop care including pain management. PT consult to treat and eval. Nausea/emesis: Conservative treatment, continue with antiemetic Diabetes type 2: on insulin sliding scale, continue outpatient medications including glimepiride Acute on CKD III: continue with gentle IVF hydration; check Renal US. Avoid all nephrotoxic drugs. Hypertension: Continue Norvasc 5 mg daily and losartan 50 mg daily Hypothyroidism: Synthroid DVT prophylaxis: Edgar Arellano MD Nov 09, 2016 09:42
[2016-11-09] MEDS ORDERED: ASPIRIN EC 325 MG TABEC PO SCH (12:00)
--- NOTE | 2016-11-09 15:15 | RADRPT ---
EXAM DATE/TIME: 11/09/2016 13:56 [facility] COMPARISON: No previous studies available for comparison. INDICATIONS : Increased BUN and creatinine. MEDICAL HISTORY : Hypertension. Hepatitis. Cirrhosis. Thyroid disease. Cyst on left eye lid. Heart murmur. Angina. Pulm onary embolism. GERD. Stage 3 renal disease. Arthritis. Fibromyalgia. Right breast cancer. SURGICAL HISTORY : Tonsillectomy. Cholecystectomy. IVC Filter placement. Cardiac cath. Right breast surgery. Hysterectom y. Right knee surgery. Bilateral hand reconstruction. Left ankle surgery. ENCOUNTER: Initial ACUITY: 1 day PAIN SCORE: 2/10 LOCATION: Bilateral flank MEASUREMENTS: RIGHT KIDNEY: 12.1 x 5.0 x 5.8 cm LEFT KIDNEY: 11.2 x 6.6 x 5.9 cm FINDINGS: RIGHT KIDNEY: There is thinning of the renal parenchyma. There is no evidence of hydronephrosis. There is a cyst al reji the midpole measuring 4.4 cm. LEFT KIDNEY: There is thinning of the renal parenchyma. There is no evidence of hydronephrosis. There are multiple cysts throughout the left kidney. The largest cyst measures 5.1 cm along the midpole. There is a cys t measuring 4.9 cm along the midpole. There is a cyst measuring 3.2 cm along the midpole. BLADDER: Within normal limits given the degree of distension. Prevoid volume is 1186 mL. Post void volume is 427 mL. CONCLUSION: 1. No hydronephrosis. 2. Bilateral renal cysts. 3. Large prevoid volume 4. Large post void volume Israel Vila MD on November 09, 2016 at 15:11 Board Certified Radiologist. This report was verified electronically.
[2016-11-09] MEDS: ACETAMINOPHEN 325 MG TAB PO PRN ×2 (16:45→23:23)
[2016-11-09] MEDS: ASPIRIN EC 325 MG TABEC PO SCH (20:09)
[2016-11-09] MEDS: SENNOSIDES 8.6 MG TAB PO SCH (20:10)
[2016-11-10] VITALS: BP 153/80; PULSE 80; RESP 18; TEMP 97.9; O2SAT 95
[2016-11-10] MEDS: DEXT 5%-NACL 0.45% 1000 ML INJ 1,000 ML IV SCH ×2 (04:47→12:42)
[2016-11-10] MEDS: LEVOTHYROXINE SODIUM 150 MCG TAB PO SCH (05:46)
[2016-11-10] MEDS: ACETAMINOPHEN 325 MG TAB PO PRN ×2 (05:47→18:16)
[2016-11-10 06:04] LABS: BICARBONATE 28.6 MEQ/L (21.0-32.0)
[2016-11-10 08:00] VITALS: BP 158/92; PULSE 87; RESP 17; TEMP 96.4; O2SAT 96
[2016-11-10] MEDS ORDERED: cloNIDine HCL 0.1 MG TAB PO PRN (08:15)
[2016-11-10] MEDS: SODIUM CHLORIDE 0.9% FLUSH 5 ML FLUSH IVF SCH (09:39)
[2016-11-10] MEDS: ASPIRIN EC 325 MG TABEC PO SCH (09:40)
[2016-11-10] MEDS: LOSARTAN 50 MG TAB PO SCH (09:40)
[2016-11-10] MEDS: FLUoxetine HCL 20 MG CAP PO SCH (09:40)
[2016-11-10] MEDS: amLODIPine BESYLATE 5 MG TAB PO SCH (09:40)
[2016-11-10] MEDS: GLIMEPIRIDE 4 MG TAB PO SCH (09:40)
[2016-11-10] MEDS: MAGNESIUM HYDROXIDE SUSP 30 ML CUP PO SCH (09:41)
[2016-11-10 10:10] VITALS: O2SAT 93
[2016-11-10 12:00] VITALS: BP 160/98; PULSE 82; RESP 18; TEMP 96.5; O2SAT 98
--- NOTE | 2016-11-10 12:54 | HHI.PR ---
Subjective Remarks Patient seen and examined No chest pain, no shortness of breath. Creatinine improving Objective Vitals Vital Signs Date Time Temp Pulse Resp B/P Pulse Ox O2 Delivery O2 Flow Rate FiO2 11/10/16 10:10 93 21 11/10/16 08:00 96.4 87 17 158/92 96 11/10/16 00:00 97.9 80 18 153/80 95 11/09/16 20:00 98.3 85 20 152/73 95 11/09/16 18:18 96 21 11/09/16 16:00 99.2 78 18 166/85 96 11/09/16 14:25 96 Nasal Cannula 2.00 I/O 11/09/16 11/09/16 11/09/16 11/10/16 11/10/16 11/10/16 07:00 15:00 23:00 07:00 15:00 23:00 Intake Total 240 ml 1320 ml 480 ml Output Total 4 ml Balance 240 ml 1316 ml 480 ml Intake Oral 240 ml 1320 ml 480 ml Output Urine Total 4 ml # Voids 2 4 3 # Bowel Movements 0 1 0 Result Diagram: 11/08/16 0619 11/10/16 0456 Imaging Last Impressions Renal Ultrasound 11/09/16 0000 Signed Impressions: Service Date/Time: Wednesday, November 09, 2016 13:56 - CONCLUSION: 1. No hydronephrosis. 2. Bilateral renal cysts. 3. Large prevoid volume 4. Large post void volume Israel Vila MD Knee X-Ray 11/07/16 1247 Signed Impressions: Service Date/Time: Monday, November 07, 2016 13:16 - CONCLUSION: Satisfactory appearance post right TKA Cheikh Denise MD Objective Remarks GENERAL: NAD SKIN: Warm and dry. HEAD: Normocephalic. EYES: No scleral icterus. No injection or drainage. NECK: Supple, trachea midline. No JVD or lymphadenopathy. CARDIOVASCULAR: Regular rate and rhythm without murmurs, gallops, or rubs. RESPIRATORY: Breath sounds equal bilaterally. No accessory muscle use. GASTROINTESTINAL: Abdomen soft, non-tender, nondistended. MUSCULOSKELETAL: No cyanosis, or edema. Right knee repair; dressing intact- neurovascular intact BACK: Nontender without obvious deformity. No CVA tenderness. A/P Assessment and Plan 76-year-old female with Right severe knee osteoarthritis: History of previous right knee surgeries and now status post Right total knee arthroplasty 11/07/16, management per orthopedic surgery and continue current postop care including pain management. PT consult to treat and eval. Nausea/emesis: Conservative treatment, continue with antiemetic Diabetes type 2: on insulin sliding scale, continue outpatient medications including glimepiride Acute on CKD III:Resolved. Creatinine of 1.09 s/p Tx with gentle IVF hydration; Renal US noted. Avoid all nephrotoxic drugs. Hypertension: Continue Norvasc 5 mg daily and losartan 50 mg daily Hypothyroidism: Synthroid DVT prophylaxis: Edgar Arellano MD Nov 10, 2016 12:53
[2016-11-10] MEDS ORDERED: COMMODE 3-IN-11 MIS (14:13)
[2016-11-10] MEDS: ONDANSETRON HCL 4 MG/2 ML VIAL IVP PRN (14:45)
[2016-11-10 16:00] VITALS: BP 150/78; PULSE 68; RESP 18; TEMP 96.2; O2SAT 97
[2016-11-10] MEDS ORDERED: CPMMACHINE (17:21)
--- NOTE | 2016-11-11 22:33 | MD ---
cc: DOMO MEJIA,GOLDIE Dumont MD ADMISSION DATE: 11/07/2016 DISCHARGE DATE: 11/10/2016 ADMISSION DIAGNOSIS Osteoarthritis of the right knee, varus deformity right knee, patellofemoral disorder right knee, medial meniscus tear right knee and pain of the right knee. DISCHARGE DIAGNOSIS Osteoarthritis of the right knee, varus deformity right knee, patellofemoral disorder right knee, medial meniscus tear right knee and pain of the right knee. HISTORY OF THE PRESENT ILLNESS A 76-year-old white female with a lengthy history of right knee pain dating back to approximately 1988 at which time she underwent arthroscopic surgery as completed in [place] where she was residing at that time. She described limited improvement following the procedure until approximately 1990 when she developed a staph infection secondary to a laceration about her right knee that required repeat surgery and approximately 6 months of intravenous antibiotic treatment. Over the following years she underwent at least two additional arthroscopic procedures, the most recent of which was completed in 2001. During this interval of time she received multiple cortisone injections for ongoing pain about her right knee while conforming to conservative management, but with the passage of time she became increasingly more symptomatic with pain especially during the previous two years that she related to dancing activities. She had fallen on several occasions being aware of recurrent swelling about her knee for which she had taken Aleve, naproxen and hydrocodone for pain management. She described herself as having been quite active in the past which included participation in karate and softball activities. She presented to the undersigned physician in July of this past year and at that time an MRI scan which had been completed in June, reported tricompartmental osteoarthritis being more severe in the medial compartment with an extruded tear involving the body of the medial meniscus with adjacent bony edema. Her x-ray studies revealed obvious degenerative changes with [id number] apposition about the medial compartment, associated with a varus deformity of at least 8 degrees magnitude and secondary involvement of the patellofemoral articulation. Findings and treatment options were reviewed. The pros and cons of continuing with conservative management versus operative intervention involving total knee arthroplasty were outlined in detail. Emphasis was made regarding the fact that the decision to proceed with surgery would be left entirely to the patient's discretion. The patient considered her options in this regard and subsequently returned to the office expressing her desire to proceed accordingly. In compliance with her wishes she was scheduled for admission at this time in order that total knee replacement be completed. Physical examination of the time of admission revealed a fullness about the right knee that was consistent with redundancy of soft tissue. No distinct intra-articular effusion. Limited mobility in the 90+ degree range of flexion with crepitation elicited, trace collateral ligamentous instability. Yani test and drawer sign negative. Pivot shift and Nel sign positive for medial compartment pain. Straight-leg raising unremarkable at 80 degrees. Satisfactory mobility of the right hip with no associated pain. Mild antalgic gait. HOSPITAL COURSE Prior to admission to the hospital the patient underwent medical evaluation and clearance for surgery as completed by her primary care physician Dr. Jose Luis Schmidt. She was taken to the operating room on 07 November 2016 and on that date underwent a right total knee arthroplasty completed in an uncomplicated manner. The patient was noted to have tolerated her operative procedure well and her postoperative course stable thereafter. She was progressively mobilized under the guidance of physical therapy being permitted weightbearing to tolerance about the right lower extremity. Follow up examination of her surgical wound noted to be intact, healing favorably, no evidence of infection. Medical followup per the hospitalist service. DVT prophylaxis initiated. food services manager consulted to assist with discharge planning. The patient declined recommendation for temporary rehab placement indicating her desire to be discharged home and continue her rehabilitation on an outpatient basis. Plans were finalized through the Social Service Department and pending medical clearance she was scheduled for transfer discharge on the third postoperative day at which time she was noted to be making slow but steady progress with regards to her rehab program. She was scheduled to be seen in office followup in approximately four weeks. Hemoglobin and hematocrit assessment postoperatively was 11.2 and 34.1. Condition at the time of discharge stable. Prognosis favorable. DISCHARGE MEDICATIONS 1. Hydrocodone 5/325, #60. 2. Aspirin 325 mg one tablet twice daily for 3 weeks #40. MD OSMIN Cuellar/KK /6:34 AM /10:25 PM
== END 2016-11-10 18:21 | disposition home health service (06) | DRG 470 ==
LOC: HSDI 11-07 06:14 → N06B 11-07 14:12
PROVIDERS: ADMIT Orthopaedic Surgery; ATTEND Orthopaedic Surgery
PROC: 3E0T3CZ (ICD-10-PCS; 2016-11-07)
PROC: 0SRC0J9 Replacement of Right Knee Joint with Synthetic Substitute, Cemented, Open Approach (ICD-10-PCS; principal; 2016-11-07 10:16)
DX: M17.11 Unilateral primary osteoarthritis, right knee (principal); E11.22 Type 2 diabetes mellitus with diabetic chronic kidney disease; N18.3 Chronic kidney disease, stage 3 (moderate); E03.9 Hypothyroidism, unspecified; I12.9 Hypertensive chronic kidney disease with stage 1 through stage 4 chronic kidney disease, or unspecified chronic kidney disease; M22.2X1 Patellofemoral disorders, right knee; M21.161 Varus deformity, not elsewhere classified, right knee; M79.7 Fibromyalgia; F32.9 Major depressive disorder, single episode, unspecified; F41.9 Anxiety disorder, unspecified; R11.2 Nausea with vomiting, unspecified; Z79.84 Long term (current) use of oral hypoglycemic drugs; Z72.0 Tobacco use; Z86.711 Personal history of pulmonary embolism
CPT/HCPCS: 73560; 76775; 80048; 85014; 85018; 86850; 86900; 86901; 87641; 88305; 88311; 94150; C1776; J0131; J0690; J1100; J2250; J2270; J2405; J2710; J3010; J7120; L1830

== ENCOUNTER → 2016-10-31 | Outpatient (CLI) | payer MEDICARE ==
[~2016-10-31] MED LIST: AMLO5TAB2 PO; ASPI325T PO; CALC1TAB55 PO; COMMODE 3-IN-11 MIS; CPMMACHINE; DIPH25CA PO; FISH1000 PO; FLUO40CA PO; GLIM4TAB PO; HYDR-3516 PO; LEVO150T7 PO; LOSA50TA PO; MISC-274; MULT-120 PO; OXYC1TAB63 PO; PANT40TA3 PO; VITA500T PO; VITA500T49 PO; ZOLP10TA3 PO
[2016-10-31 11:41] LABS: HEMATOCRIT 37.6 % (35.0-46.0); MEAN CELL VOLUME 95.6 FL (80.0-100.0); MEAN CORPUSCULAR HEMOGLOBIN 32.3 PG (27.0-34.0); MEAN CORPUSCULAR HGB CONC 33.7 % (32.0-36.0); PLATELET COUNT 178 TH/MM3 (150-450); RED BLOOD COUNT 3.93 MIL/MM3 (4.00-5.30); RED CELL DISTRIBUTION WIDTH 13.8 % (11.6-17.2); REVIEW FLAG FINAL; WHITE BLOOD COUNT 6.2 TH/MM3 (4.0-11.0)
[2016-10-31 11:47] LABS: PROTHROMBIN TIME - PATIENT 11.6 SEC (9.8-11.6)
[2016-10-31 11:57] LABS: BICARBONATE 27.8 MEQ/L (21.0-32.0); POTASSIUM 4.5 MEQ/L (3.5-5.1)
[2016-10-31 12:11] LABS: BACTERIA, URINE RARE /hpf; BLOOD, URINE NEG (NEG); COMMENT (UR) CULT NOT INDICATED; CULTURE IF INDICATED CULT NOT INDICATED; GLUCOSE,URINE NEG (NEG); KETONE, URINE NEG (NEG); MUCUS URINE FEW /lpf (OCC); NITRITE,URINE NEG (NEG); PH, URINE 5.5 (5.0-8.5); SQUAMOUS EPITHELIAL CELL URINE <1 /hpf (0-5); TRANSITIONAL EPI CELLS, URINE <1 /hpf; URINE COLOR LIGHT-YELLOW (YELLW/STRAW)
--- NOTE | 2016-11-01 11:25 | EKG ---
Date Performed: 10/31/2016 Time Performed: 11:42:30 PTAGE: 76 years EKG: ECTOPIC ATRIAL RHYTHM MARKED LEFT AXIS DEVIATION LEFT VENTRICULAR HYPERTROPHY AND ST-T BRUNO GE POSSIBLE SEPTAL MYOCARDIAL INFARCTION, OF INDETERMINATE AGE ABNORMAL ECG PREVIOUS TRACING : 11/06/2004 10.33 DOCTOR: Filippo Hoyos Interpretating Date/Time 11/01/2016 11:25:03
== END ==
LOC: CPRE 10:29
PROVIDERS: ATTEND Orthopaedic Surgery
DX: Z01.810 Encounter for preprocedural cardiovascular examination (principal); Z01.812 Encounter for preprocedural laboratory examination; M17.11 Unilateral primary osteoarthritis, right knee; M21.161 Varus deformity, not elsewhere classified, right knee; M22.2X1 Patellofemoral disorders, right knee; S83.241A Other tear of medial meniscus, current injury, right knee, initial encounter; M25.561 Pain in right knee; I51.7 Cardiomegaly
CPT/HCPCS: 36415; 80048; 81001; 85027; 85610; 93005